=== PATIENT | female | born 1990 | race Caucasian/White ===

== ENCOUNTER 2018-04-20 16:51 | Emergency (ER) | payer BC ==
[2018-04-20 18:04] LABS: URINE SOURCE CLEAN C
[2018-04-20 18:21] LABS: URINE BILIRUBIN NEGATIVE (NEGATIVE); URINE BLOOD NEGATIVE (NEGATIVE); URINE GLUCOSE (UA) NEGATIVE (NEGATIVE); URINE KETONE NEGATIVE (NEGATIVE); URINE LEUKOCYTE ESTERASE TRACE (NEGATIVE); URINE MICROSCOPIC INDICATED? YES; URINE NITRATE NEGATIVE (NEGATIVE); URINE PH 8.5 (4.6 - 8.0); URINE PROTEIN NEGATIVE (NEGATIVE); URINE UROBILINOGEN 0.2 E.U./dL (0.2 - 1.0)
[2018-04-20 18:30] LABS: URINE CLARITY CLEAR (CLEAR); URINE COLOR YELLOW
[2018-04-20 18:56] LABS: URINE BACTERIA 1+ /hpf (NONE SEEN); URINE EPITHELIAL CELLS MODERATE /lpf (FEW); URINE RBC 0-2 /hpf (0-5)
--- NOTE | 2018-05-09 16:42 | ER Physician Documentation ---
DATE OF SERVICE: HISTORY OF PRESENT ILLNESS: This is a 27-year-old female patient who presents to the Emergency Room complaining of dysuria for 1 day. She denies any other complaints. No history of trauma. The patient denies loss of consciousness, altered LOC, altered mental status, headaches, neck pain, chest pain, cough, shortness of breath, abdominal pain, anorexia, nausea, vomiting, diarrhea, constipation, or vaginal bleeding. The patient denies pelvic pain, but does admit to an intermittent vaginal discharge for about 1 week. The patient was eating regular diet and urinating well. The patient last urinated about an hour prior to admission. The patient's last normal menstrual period was 1 week ago. The patient denies . PHYSICAL EXAMINATION: GENERAL: Found the patient in no acute distress, alert and oriented x 3. VITAL SIGNS: Afebrile, vital signs stable. HEENT: Unremarkable. NECK: Supple. There are no meningeal signs. No cervical tenderness and the neck is supple and no bruits. CARDIOVASCULAR: Regular rate and rhythm. LUNGS: Clear with good breath sounds bilaterally. ABDOMEN: Soft, nontender, normal active bowel sounds. No pulsatile masses. GENITOURINARY AND PELVIC: Deferred by the patient. RECTAL: Deferred by patient. EXTREMITIES: No edema, clubbing or cyanosis. SKIN: Shows good turgor with moist mucous membranes. NEUROLOGIC: Showed no focal signs. LABORATORY DATA: Urine test was negative. Urinalysis was positive for bacteria and positive for leukocytes. Urine and sensitivity was sent out. The patient tolerated oral fluids well in the ER and was subsequently discharged with a prescription for Macrobid 100 mg twice a day for 10 days, Monistat vaginal cream applied to the vagina twice a day for 7 days, Tylenol 500 mg by mouth 4 times a day p.r.n. pain and/or fever. DISCHARGE INSTRUCTIONS: Include discharge instructions for urinary tract infection, monilia vaginitis, dysuria, and fever. So aftercare instructions are provided for all diagnoses. The patient is to be referred to an insurance claims assistant specialist and urologist and scrub woman as soon as possible. The patient to return to the Emergency Room as needed if existing exception should reoccur and/or get worse and/or any new other signs and symptoms occur. Otherwise, the patient should have followup care with primary physician in one day or as needed. The patient should return to the Emergency Room as needed if concerned. JOB# [id number]
== END 2018-04-20 18:46 | disposition home or self-care (01) ==
LOC: ER 16:51
DX: N89.8 Other specified noninflammatory disorders of vagina (principal); R30.0 Dysuria
CPT/HCPCS: 81001-TC; 81025-TC; Z7502